=== PATIENT | female | born 1990 | race Two or more races ===

== ENCOUNTER 2018-06-18 10:42 | Inpatient (IN) | payer OTHER ==
[2018-06-18] MEDS ORDERED: Buffered Lidocaine 0.9% SYRIN* 5 ML/SYR SYRINGE ONE (11:05)
[2018-06-18 11:40] LABS: ABS Basophils 0 10^3/ul (0-0.2); ABS Eosinophils 0 10^3/ul (0-0.6); ABS Lymphocytes 1.6 10^3/ul (1.0-4.8); ABS Monocytes 1.2 10^3/ul (0-0.8); ABS Neutrophils 6.8 10^3/ul (1.5-7.7); ABS Nucleated RBC 0 10^3/ul; Eosinophil % 0.4 % (0-6); Hematocrit 36 % (35-47); Hemoglobin 12.6 g/dl (12.0-16.0); Lymphocyte % 16.9 % (25-47); Mean Corpuscular HGB Conc 35 g/dl (31-36); Mean Corpuscular Hemoglobin 30 pg (27-31); Mean Corpuscular Volume 86 fL (80-97); Mean Platelet Volume 7.5 um3 (7.4-10.4); Nucleated Red Blood Cells % 0.1; Platelet Count 224 10^3/ul (150-450); Red Blood Count 4.23 10^6/ul (4.00-5.40); Red Cell Distribution Width 14 % (10.5-15); White Blood Count 9.7 10^3/ul (3.5-10.8)
--- NOTE | 2018-06-18 12:14 | HP ---
General Information - Reason for Visit at 40 2/7 weeks in labor. - General Information Maternal Age: 28 Grav: 2 Para: 0 SAB: 1 IEA: 0 Estimated Due Date: 03/06/16 Determined By: LMP Gestational Age in Weeks/Days: 40 2/7 Maternal Blood Type and Rh: A Positive - Results this Serology/RPR Result: Non-Reactive Rubella Result: Immune HBsAg Result: Negative HIV Result: Negative GBS Culture Result: Negative Past Medical History Delivery History: See Records Pertinent Past Medical History: See Records Past Medical History Comment: Trigeminal neuralgia Hypothyroidism Pertinent Past Surgical History: See Records Pertinent Family History: See Records - Antepartal Records Antepartal Records: Reviewed, Uncomplicated Review of Systems Constitutional: Comfortable CV Complaint: No Respiratory: Shortness of Breath: No Gastrointestinal: No Nausea/Vomiting, Normal Bowel Movement Genitourinary: No Dysuria, No Bleeding, No Leaking Fluid Musculoskeletal: No Complaint, No Epigastric Pain Neurological: No Headache, No Visual Changes Movement: Normal Exam Allergies/Adverse Reactions: Allergies vancomycin Allergy (Verified 06/18/18 11:07) Hives Temp 99.1 BP 128/84 P 78 RR 18 POx 98 % RA Lab Values - Entire Visit: Laboratory Tests 06/18/18 06/18/18 11:15 11:15 WBC 9.7 RBC 4.23 Hgb 12.6 Hct 36 MCV 86 MCH 30 MCHC 35 RDW 14 Plt Count 224 MPV 7.5 Neut % (Auto) 70.2 Lymph % (Auto) 16.9 L [place] % (Auto) 12.1 H Eos % (Auto) 0.4 Baso % (Auto) 0.4 Absolute Neuts (auto) 6.8 Absolute Lymphs (auto) 1.6 Absolute Monos (auto) 1.2 H Absolute Eos (auto) 0 Absolute Basos (auto) 0 Absolute Nucleated RBC 0 Nucleated RBC % 0.1 Blood Type A Positive - Measurements Height: 5 ft 3 in Weight: 185 lb Weight in lbs: [id number] Body Mass Index (BMI): 32.8 Pre- Weight: 140 lb Weight Gained This : 45 lbs and 0 ozs - Exam Breast: Breast Exam Deferred CVA: No CVA Tenderness Extremities: No Edema Heart: Normal Rhythm/Heart Sounds HEENT: No Significant Findings Lungs: Clear Bilaterally Rectal: Rectal Exam Deferred Reflexes: DTR 2+ Thyroid: No Thyromegaly - Abdominal Exam Abdomen Exam: Non-Tender, Fundal Height Consistent with Dates - Ultrasound/Biophysical Profile Ultrasound Status: Not Done Biophysical Profile: Normal Reactive NST Targeted Exam Findings See L&D Outpatient Visit Provider Note for Findings: N/A Cervical Exam: 4cm Effacement: 70% Station: -1 Presenting Part: Vertex Membrane Status: Intact Bleeding/Discharge: None EFM Findings - External Monitor Findings Baseline Heart Rate: 135 External Monitor Findings: Accelerations Present Contractions: Regular, Moderate Assessment/Plan - Assessment Term in spontaneous labor. - Plan Plan: IV Hydration, Admit - Anticipate Vaginal Delivery - Date/Time of Admission Date of Admission: 06/18/18 Time of Admission: 11:00
[2018-06-18] MEDS ORDERED: OBEPIDURAL* 250 ML EPIDURAL ONE (13:10)
[2018-06-18] MEDS ORDERED: Phenylephrine IV* 40 MCG/ML 10 ML SYRINGE IV PUSH PRN ×2 (14:08)
[2018-06-18] MEDS ORDERED: Famotidine TAB* 20 MG PO PRN (14:08)
[2018-06-18] MEDS ORDERED: Sodium Citrate/Citric Acid* 15 ML UDC PO PRN (14:08)
[2018-06-18] MEDS ORDERED: OBEPIDURAL* 250 ML EPIDURAL SCH (15:00)
[2018-06-18] MEDS ORDERED: Oxytocin in LR* 20 UNITS/1,000 ML BAG IVPB ONE (16:02)
[2018-06-18] MEDS ORDERED: Glycerin ADULT SUPP PR PRN (16:32)
[2018-06-18] MEDS ORDERED: Dibucaine 1% 28.35 GM TUBE PR PRN (16:32)
[2018-06-18] MEDS ORDERED: Acetaminophen TAB* 325 MG PO PRN (16:32)
[2018-06-18] MEDS ORDERED: Ibuprofen TAB* 600 MG PO PRN (16:32)
[2018-06-18] MEDS ORDERED: Witch Hazel PAD* JAR TOPICAL PRN (16:32)
--- NOTE | 2018-06-18 16:38 | PROCNOTE ---
[facility] OB: Delivery Note - Delivery A Date of : 06/18/18 Time of : 16:10 Sex: Female Weight at : 8 lb 4 oz Score 1 Minute: 9 Score 5 Minutes: 9 Gestational Age in Weeks and Days at Delivery: 159 Weeks and 1 Days Delivery Method: Spontaneous Vaginal Labor: Spontaneous Did Patient attempt ?: N/A, No Previous Amniotic Fluid: Clear Estimated Blood Loss: 200 Anesthesia/Analgesia: CEI for Labor Delivered By: Kobe Kaminski - Nursery Level of Nursery: Regular/Bedside - Perineum Perineal Injury: Periurethral Laceration, Perineal Laceration, 1st Degree Perineal Repair: By Delivering Practioner - Events Delivery Events of Note: None Apply
[2018-06-18] MEDS ORDERED: Simethicone TAB* 80 MG TAB.CHEW PO SCH (17:30)
[2018-06-18] MEDS: Docusate CAP* 100 MG PO SCH (21:11)
[2018-06-19 06:32] LABS: ABS Basophils 0 10^3/ul (0-0.2); ABS Eosinophils 0 10^3/ul (0-0.6); ABS Lymphocytes 1.7 10^3/ul (1.0-4.8); ABS Monocytes 1.3 10^3/ul (0-0.8); ABS Neutrophils 7.9 10^3/ul (1.5-7.7); ABS Nucleated RBC 0 10^3/ul; Eosinophil % 0.2 % (0-6); Hematocrit 36 % (35-47); Hemoglobin 12.5 g/dl (12.0-16.0); Lymphocyte % 15.4 % (25-47); Mean Corpuscular HGB Conc 34 g/dl (31-36); Mean Corpuscular Hemoglobin 30 pg (27-31); Mean Corpuscular Volume 87 fL (80-97); Mean Platelet Volume 7.2 um3 (7.4-10.4); Nucleated Red Blood Cells % 0.2; Platelet Count 190 10^3/ul (150-450); Red Blood Count 4.16 10^6/ul (4.00-5.40); Red Cell Distribution Width 15 % (10.5-15); White Blood Count 10.9 10^3/ul (3.5-10.8)
[2018-06-19] MEDS: Docusate CAP* 100 MG PO SCH ×2 (08:54→14:41)
[2018-06-19] MEDS ORDERED: Ferrous Gluconate TAB* 324 MG TAB PO SCH (09:00)
[2018-06-19 12:06] VITALS: BP 120/77
== END 2018-06-19 17:47 | disposition home or self-care (01) | DRG 807 ==
LOC: MCHOB 10:46
PROVIDERS: ADMIT Obstetrics & Gynecology; ATTEND Obstetrics & Gynecology
PROC: 10E0XZZ Delivery of Products of Conception, External Approach (ICD-10-PCS; principal; 2018-06-18)
PROC: 10907ZC Drainage of Amniotic Fluid, Therapeutic from Products of Conception, Via Natural or Artificial Opening (ICD-10-PCS; 2018-06-18)
PROC: 4A1HXCZ Monitoring of Products of Conception, Cardiac Rate, External Approach (ICD-10-PCS; 2018-06-18)
PROC: 0HQ9XZZ Repair Perineum Skin, External Approach (ICD-10-PCS; 2018-06-18)
PROC: 0UQMXZZ Repair Vulva, External Approach (ICD-10-PCS; 2018-06-18)
DX: O48.0 Post-term pregnancy (principal); Z37.0 Single live birth; Z3A.40 40 weeks gestation of pregnancy; Z88.1 Allergy status to other antibiotic agents; O99.284 Endocrine, nutritional and metabolic diseases complicating childbirth; E03.9 Hypothyroidism, unspecified; O70.0 First degree perineal laceration during delivery; O71.82 Other specified trauma to perineum and vulva
CPT/HCPCS: 36415; 85025; 86850; 86900; 86901; A9270-GY

== ENCOUNTER → 2018-09-30 16:08 | Emergency (ER) | payer OTHER ==
[~2018-09-30 16:08] MED LIST: Acetaminophen TAB* 325 MG PO ONE; Cephalexin CAP* 500 MG PO ONE; Ibuprofen TAB* 600 MG PO ONE; Lidocaine 1% MPF wEPI 200,000* 30 ML SDV INJ ONE; Lidocaine 2% EPI 1:200000 MPF*10-20 ML VIAL ONE; Ondansetron ODT TAB* 4 MG SL ONE
[2018-09-30 17:00] LABS: ABS Basophils 0 10^3/ul (0-0.2); ABS Eosinophils 0.1 10^3/ul (0-0.6); ABS Lymphocytes 1.8 10^3/ul (1.0-4.8); ABS Monocytes 0.9 10^3/ul (0-0.8); ABS Neutrophils 5.9 10^3/ul (1.5-7.7); ABS Nucleated RBC 0 10^3/ul; Eosinophil % 1.2 %; Hematocrit 39 % (35-47); Hemoglobin 13.3 g/dl (12.0-16.0); Lymphocyte % 20.1 %; Mean Corpuscular HGB Conc 34 g/dl (31-36); Mean Corpuscular Hemoglobin 28 pg (27-31); Mean Corpuscular Volume 82 fL (80-97); Mean Platelet Volume 6.6 fL (7.4-10.4); Nucleated Red Blood Cells % 0; Platelet Count 262 10^3/ul (150-450); Red Blood Count 4.71 10^6/ul (4.00-5.40); Red Cell Distribution Width 12 % (10.5-15); White Blood Count 8.8 10^3/ul (3.5-10.8)
--- NOTE | 2018-09-30 17:03 | ED ---
Skin Complaint - HPI Summary HPI Summary: This pt is a 28 y/o female presenting to [facility] c/o perirectal abscess. Pt reports she first noticed a bump on 09/25/18 and since then this bump has increased in size. She notes the abscess is erythematous and painful. She has some nausea. The abscess is not draining pus. Denies fever, chills, vomiting, dysuria, hematuria, headache, double vision, blurry vision, chest pain, SOB. Pt saw Dr. Kaminski today and was told to come to the ED for an I&D and cultures. She just gave 3 months ago. Pt is breast feeding. Her tetanus is UTD. - History of Current Complaint Chief Complaint: EDUrogenitalProblems Stated Complaint: GENERAL ILLNESS Hx Obtained From: Patient Onset/Duration: Started Days Ago, Still Present Skin Exposure Onset/Duration: Days Ago Timing: Lasting Days Current Severity: Moderate Pain Intensity: 4 Pain Scale Used: 0-10 Numeric Skin Location: Other: - perirectal Character: Pain, Redness, Raised Aggravating Symptom(s): Nothing Alleviating Symptom(s): Nothing Associated Signs & Symptoms: Nausea - Allergy/Home Medications Allergies/Adverse Reactions: Allergies Allergy/AdvReac Type Severity Reaction Status Date / Time vancomycin Allergy Hives Verified 09/30/18 16:13 PMH/Surg Hx/FS Hx/Imm Hx Endocrine/Hematology History: Denies: Hx Diabetes Cardiovascular History: Reports: Hx Hypertension Infectious Disease History: No Infectious Disease History: Denies: Traveled Outside the [place] in Last 30 Days - Family History Known Family History: Negative: Cardiac Disease, Hypertension - Social History Alcohol Use: None Substance Use Type: Reports: None Smoking Status (MU): Never Smoked Tobacco Have You Smoked in the Last Year: No Review of Systems Negative: Fever, Chills Negative: Blurred Vision, Diplopia Negative: Chest Pain Negative: Shortness Of Breath Positive: Nausea Negative: dysuria, hematuria Skin: Other - POS: perirectal abscess Negative: Headache All Other Systems Reviewed And Are Negative: No Physical Exam - Summary Physical Exam Summary: Appearance: Alert, conversive, nontoxic appearing Skin: Warm, dry, no mottling, no rashes, no contusions HEENT: EOMI, PERRL, moist mucous membranes Neck: No masses on the neck, supple Respiratory: Clear to auscultation, breath sounds present, no rales, no rhonchi , no wheezes Cardiovascular: RRR, pulses are symmetrical in both lower and upper extremities Abdomen: Soft, non-tender Bowel Sounds: Present : abscess between the left labia majora and minora with surrounding cellulitis. Musculoskeletal: No CVA tenderness, no obvious deformity, moving all extremities in a grossly normal manner Neurological: A&Ox3, CN II-XII Intact, moving all extremities symmetrically Psychiatric: Normal affect and mood Triage Information Reviewed: Yes Vital Signs On Initial Exam: Initial Vitals Temp Pulse Resp BP Pulse Ox 97.1 F 96 17 140/97 99 09/30/18 16:11 09/30/18 16:11 09/30/18 16:11 09/30/18 16:11 09/30/18 16:11 Vital Signs Reviewed: Yes Procedures - Incision and Drainage 1 Site: abscess between the left labia majora and minora Anesthesia: Lidocaine - 1% with epi Instrument(s): Scalpel Packing: Gauze Diagnostics - Vital Signs Vital Signs Temp Pulse Resp BP Pulse Ox 09/30/18 16:11 97.1 F 96 17 140/97 99 - Laboratory Lab Results: Lab Results 09/30/18 Range/Units 16:50 WBC 8.8 (3.5-10.8) 10^3/ul RBC 4.71 (4.00-5.40) 10^6/ul Hgb 13.3 (12.0-16.0) g/dl Hct 39 (35-47) % MCV 82 (80-97) fL MCH 28 (27-31) pg MCHC 34 (31-36) g/dl RDW 12 (10.5-15) % Plt Count 262 (150-450) 10^3/ul MPV 6.6 L (7.4-10.4) fL Neut % (Auto) 67.4 % Lymph % (Auto) 20.1 % [place] % (Auto) 10.8 % Eos % (Auto) 1.2 % Baso % (Auto) 0.5 % Absolute Neuts (auto) 5.9 (1.5-7.7) 10^3/ul Absolute Lymphs (auto) 1.8 (1.0-4.8) 10^3/ul Absolute Monos (auto) 0.9 H (0-0.8) 10^3/ul Absolute Eos (auto) 0.1 (0-0.6) 10^3/ul Absolute Basos (auto) 0 (0-0.2) 10^3/ul Absolute Nucleated RBC 0 10^3/ul Nucleated RBC % 0 Result Diagrams: 09/30/18 16:50 09/30/18 16:50 Lab Statement: Any lab studies that have been ordered have been reviewed, and results considered in the medical decision making process. Re-Evaluation - Re-Evaluation First Eval Re-Evaluation Time: 17:34 Comment: Incision and Drainage was performed. Pt tolerated well. Course/Dx - Course Assessment/Plan: Pt is a 28 y/o female, referred by Dr. Kaminski (her OB), who presents with a perirectal abscess. Pt reports she first noticed a bump on and since then this bump has increased in size. She notes the abscess is erythematous and painful. She has some nausea. The abscess is not draining pus. Denies fever, chills, vomiting. Pt has an abscess between the left labia majora and minora with surrounding cellulitis. Incision and drainage was performed by Dr. Reese, ED provider. Pt tolerated procedure well. Cultures were sent. Please see procedure note. She will be discharged home with follow up from Dr. Kaminski. Pt will be given prescription for Keflex and advised to take Tylenol and Motrin for the pain. She was instructed to return to the ED for any worsening or new symptoms. - Diagnoses Provider Diagnoses: Abscess, Cellulitis Discharge - Sign-Out/Discharge Documenting (check all that apply): Patient Departure - Discharge home - Discharge Plan Condition: Stable Disposition: HOME Prescriptions: Cephalexin CAP* [Keflex CAP*] 500 mg PO TID #21 cap Patient Education Materials: Cellulitis (ED), Abscess (ED) Referrals: Anitha Proctor MD [Primary Care Provider] - Additional Instructions: Please follow up with Dr. Keyes next week. Follow up in 2 days for wound check. if you develop fever, chills, nausea/vomiting, worsening of your swelling or redness to the infection site, return for re-evaluation. take tylenol and motrin for pain. - Billing Disposition and Condition Condition: STABLE Disposition: Home - Attestation Statements Document Initiated by Scribe: Yes Documenting Scribe: Karen Rubio Provider For Whom Scribe is Documenting (Include Credential): Lakshmi Reese MD Scribe Attestation: I, Karen Rubio, scribed for Lakshmi Reese MD on 09/30/18 at 1806. Scribe Documentation Reviewed: Yes Provider Attestation: The documentation as recorded by the scotibe, Karen Rubio accurately reflects the service I personally performed and the decisions made by me, Lakshmi Reese MD Status of Scribe Document: Viewed
[2018-09-30 17:19] LABS: Albumin 4.3 g/dL (3.2-5.2); Albumin/Globulin Ratio 1.3 (1-3); Calcium 9.2 mg/dL (8.6-10.3); EGFR African American 147.9 (>60); EGFR Non-African American 122.3 (>60); Globulin 3.3 g/dL (2-4); Potassium 3.6 mmol/L (3.5-5.0); Total Bilirubin 0.3 mg/dL (0.2-1.0); Total Protein 7.6 g/dL (6.4-8.9)
[2018-09-30 18:24] VITALS: BP 131/82
== END | disposition home or self-care (01) ==
LOC: ED 16:08
DX: R11.0 Nausea (principal); L03.90 Cellulitis, unspecified; K61.1 Rectal abscess
CPT/HCPCS: 10060; 36415; 80053; 83605; 85025; 87040; 87070; 87205; 87640; 87641; 96374; 99282; A9270-GY; J2001